=== PATIENT | female | born 1985 | race Caucasian/White ===

== ENCOUNTER 2024-12-20 08:46 | Day surgery (SDC) | payer OTHER ==
[2024-12-16 16:51] LABS: Anion Gap 7.9 mEq/L (5.0-15.0); BUN Blood Urea Nitrogen 7.0 mg/dL (7-18); Glucose Level 113.0 mg/dL (74-106); Potassium 3.9 mEq/L (3.5-5.1)
[2024-12-20] MEDS ORDERED: CEFAZOLIN SODIUM 2 GM/VIAL ONE (08:52)
[2024-12-20] MEDS: Ringers Lactate 1,000 ML IV ONE (09:34)
[2024-12-20] MEDS ORDERED: LIDOCAINE HCL/EPINEPHRINE 20 ML MDV ONE (10:04)
[2024-12-20] MEDS ORDERED: FENTANYL CITR 100 MCG/2 ML ONE (10:42)
[2024-12-20] MEDS ORDERED: MIDAZOLAM HCL 2 MG/2 ML INJ ONE (10:42)
[2024-12-20] MEDS ORDERED: LIDOCAINE 1% MPF 5 ML VIAL ONE (10:44)
[2024-12-20] MEDS ORDERED: ONDANSETRON 4 MG/2 ML VIAL ONE (11:00)
[2024-12-20] MEDS ORDERED: EPHEDRINE SULF 50 MG/ML VIAL ONE (11:22)
--- NOTE | 2024-12-20 11:25 | P.OP ---
Preoperative diagnosis: Pubic Lipoma Postoperative diagnosis: Pubic Lipoma Primary procedure: Wide Excision of Pubic Lipoma Anesthesia: GETA + Local Estimated blood loss: <5cc Specimen: Pubic Lipoma Findings: ~ 2cm Pubic Lipoma Complications: None Transferred to: Recovery Room Condition: Good
[2024-12-20 11:46] VITALS: O2SAT 100
[2024-12-20 13:06] VITALS: BP 118/75; TEMP 97.7
[2024-12-20 16:54] LABS: Urine Specific Gravity/Preg 1.030 (1.005-1.030)
--- NOTE | 2024-12-20 20:02 | OP ---
Date of Procedure: 12/20/2024 Surgeon: Justino Wills MD, Preoperative Diagnosis: Pubic lipoma. Postoperative Diagnosis: Pubic lipoma. Procedure Performed: Wide local excision of pubic lipoma. Anesthesia: General endotracheal plus local with 1% lidocaine with epinephrine. Estimated Blood Loss: 5 cc. Specimens: Pubic lipoma. Findings: Approximately 2 cm pubic lipoma. Complications: None. Disposition: The patient was transferred to the recovery room in good condition. Procedure In Detail: After informed consent was obtained, the patient was prepped and draped in the usual sterile fashion. After adequate anesthesia achieved, I made a linear incision over pubic lipom a, which was premarked in the preoperative area down to subcutaneous tissues. Electrocautery was use d to dissect around the area of pubic fullness where a lipomatous mass was appreciated. This was sen t off for pathologic examination with a rim of normal tissue around it as well. The area was copious ly irrigated multiple times until completely clear. Hemostasis was achieved with minimal electrocaut lata. The area was irrigated once again. Deep dermal plane was closed using interrupted 3-0 Vicryl s utures. Skin was closed with 4-0 Monocryl in a running fashion. Dermabond was placed over top. The patient tolerated the procedure without incident or complication, transferred to PACU in good condition. All counts were correct at the end of the case. NOE/MILAGROS Voice ID: [id number] Report ID: [id number]
== END 2024-12-20 12:55 | disposition home or self-care (01) ==
LOC: OR 08:46
PROVIDERS: ATTEND Surgery
PROC: 0JBC0ZZ Excision of Pelvic Region Subcutaneous Tissue and Fascia, Open Approach (ICD-10-PCS; principal; 2024-12-20 10:30)
DX: D17.79 Benign lipomatous neoplasm of other sites (principal)
CPT/HCPCS: 93005; 80048; 36415; 81025; 88304; 27047; J2704; J2003; J2250; J3010; J1100; J2405; J7120